=== PATIENT | female | born 1995 | race Caucasian/White ===

== ENCOUNTER 2024-09-20 18:42 | Observation (INO) | payer OTHER, MEDICAID, SELFPAY ==
[2024-09-20] VITALS (16 sets, daily range): BP systolic 91–141; BP diastolic 58–92; PULSE 80–121; RESP 16–24; TEMP 36.4–36.6; O2SAT 95–100; BMI 22.6
--- NOTE | 2024-09-20 18:57 | EKG_ITS ---
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
--- NOTE | 2024-09-20 19:16 | DI.RAD.S_ITS ---
PROCEDURE: XR CHEST 1V INDICATIONS: altered mental status TECHNIQUE: One view of the chest was acquired. COMPARISON: CT, CT ANGIO CHEST PE, 01/16/2017, 0:37. CR, XR CHEST 1VW (PORTABLE), 01/15/2017, 22:58. FINDINGS: Surgical changes and devices: None. Lungs and pleura: Faint streaky right basilar opacities. Mediastinum: Mediastinal contours appear normal. Heart size is normal. Bones and chest wall: No suspicious bony lesions. Overlying soft tissues appear unremarkable. IMPRESSION: Faint streaky right basilar opacities. While this could represent atelectasis, developing pneumonia cannot be excluded. Dictated by: Tami Thompson M.D. on 09/20/2024 at 20:12 Approved by: Tami Thompson M.D. on 09/20/2024 at 20:13
[2024-09-20] MEDS: PHENobarbital 65 MG/ML VIAL 130 MG IV (19:22)
[2024-09-20 20:05] LABS: Alanine Aminotransferase 108 IU/L (<35); Albumin 5.2 g/dL (3.5-5.0); Albumin Globulin Ratio 1.8 (1.0-2.8); Alkaline Phosphatase 73 U/L (38-126); Aspartate Aminotransferase 154 IU/L (14-36); BUN Creatinine Ratio 15.5 (6-22); Bilirubin Total 2.2 mg/dL (0.2-1.3); Blood Urea Nitrogen 9 mg/dL (7-17); Calcium 9.7 mg/dL (8.4-10.2); Carbon Dioxide 20 mmol/L (22-32); Chloride 95 mmol/L (98-107); Estimated Glomerular Filt Rate > 60 mL/min (>60); Globulin 2.9 g/dL (1.7-4.1); Glucose 98 mg/dL (70-100); HEMOLYSIS 24 (0-50); Potassium 3.7 mmol/L (3.4-5.1); Sodium 134 mmol/L (137-145); Total Protein 8.1 g/dL (6.3-8.2)
[2024-09-20 20:10] LABS: Magnesium 1.3 mg/dL (1.6-2.3)
[2024-09-20 20:16] LABS: Add Manual Diff / Slide Review NO; Basophils Absolute Auto 0 /uL (0-100); Basophils Percent Auto 1.2 % (0-2); Eosinophils Absolute Auto 0 /uL (0-450); Eosinophils Percent Auto 0.8 % (2-4); Hematocrit 33.3 % (36-46); Hemoglobin 11.4 g/dL (12.0-16.0); Lymphocytes Absolute Auto 900 /uL (1100-4500); Mean Corpuscular HGB Conc 34.1 % (30-36); Mean Corpuscular Hemoglobin 34.9 PG (26-34); Mean Corpuscular Volume 102.1 fL (80-100); Monocytes Absolute Auto 500 /uL (0-900); Monocytes Percent Auto 12.5 % (3-14); Neutrophils Absolute Auto 2600 /uL (1500-7000); Neutrophils Percent Auto 63.5 % (50-75); Platelet Count 237 X10^3/uL (150-400); Red Blood Cell Count 3.26 X10^6/uL (4.0-5.2); White Blood Cell Count 4.1 X10^3/uL (4.5-11.0)
[2024-09-20 20:18] LABS: Ammonia (NH3) < 9 umol/L (9-30)
--- NOTE | 2024-09-20 21:16 | ED_ITS ---
HPI - Seizure General Chief Complaint: Seizure Stated Complaint: ETOH witdrawl Suspected seizure. Time Seen by Provider: 09/20/24 20:10 History of Present Illness HPI Narrative: 29-year-old female without history chronic seizure disorder, has ongoing alcohol use, drinks White Claw alcoholic beverages regularly, last drink sometime yesterday, at dinner had witnessed seizure tonic-clonic shaking upper and lower extremities lasting for about 45 seconds witnessed by family member. Spontaneous resolution of the seizure activity. No trauma to head or face at the time of seizure, nor recent. Denies headache, neck pain, chest pain, abdominal pain. Some nausea without emesis. No diarrhea. No black or red stools. She has felt shaky. She has had alcohol withdrawal symptoms in the past, has been treated detox center would be in the past. She has not been admitted to the ICU for alcohol withdrawal before, has not had alcohol withdrawal seizures before. Related Data Previous Rx's Medication Instructions Recorded chlordiazepoxide HCl 10 mg capsule 10 mg PO Q8H PRN alcohol 09/21/24 withdrawal #10 caps chlordiazepoxide HCl 25 mg capsule See Rx Instructions .Route 09/21/24 .COMPLEX #18 caps Allergies Allergy/AdvReac Type Severity Reaction Status Date / Time No Known Allergies Allergy Uncoded 03/06/18 13:03 Review of Systems Review of Systems Narrative: see HPI Patient History Social History household members: family Smoking Status: Never smoker alcohol intake: current Exam Narrative Exam Narrative: GENERAL: Well-developed patient, in mild distress. Anxious appearing HEAD: Atraumatic. Normocephalic. EYES: Pupils equal round and reactive. Extraocular motions intact. No scleral icterus. No injection or drainage. ENT: Nose without bleeding, purulent drainage. Throat without erythema, tonsillar hypertrophy or exudate. Airway patent. Small contusion lower inferior lip, no obvious tongue trauma. No obvious dental trauma. NECK: Trachea midline. Non tender CARDIOVASCULAR: Regular rate and rhythm without murmurs, gallops, or rubs. RESPIRATORY: Clear to auscultation. Breath sounds equal bilaterally. No wheezes, rales, or rhonchi. GASTROINTESTINAL: Abdomen soft, non-tender, nondistended. EXTREMITIES: No edema or joint tenderness. BACK: Nontender without deformity or crepitance. No flank tenderness. NEURO: AOx3. Motor functions grossly nonfocal. Some tremulousness noted. SKIN: No rash or erythema of visible areas Initial Vital Signs Initial Vital Signs: Vital Signs Temperature 97.8 F 09/20/24 18:50 Pulse Rate 121 H 09/20/24 18:50 Respiratory Rate 16 09/20/24 18:50 Blood Pressure 138/90 09/20/24 18:50 Pulse Oximetry 96 09/20/24 18:50 Oxygen Delivery Method Room Air 09/20/24 18:50 Course Orders Ordered: Discontinued Medications Acetaminophen (Acetaminophen 325 Mg Tablet) 650 mg PO Q6H PRN PRN Reason: Fever/Mild Pain (1-3) Calcium Carbonate (Calcium Carbonate 500 Mg Tab) 1,000 mg PO Q4HR PRN PRN Reason: Dyspepsia Chlordiazepoxide HCl (Chlordiazepoxide 25 Mg Capsule) 50 mg PO TID ON LICENSE OF [facility] Last Admin: 09/21/24 08:24 Dose: 50 mg Documented By: ALYSSA Chlordiazepoxide HCl (Chlordiazepoxide 25 Mg Capsule) 25 mg PO TID ON LICENSE OF [facility] Last Admin: 09/21/24 10:20 Dose: Not Given Documented By: ALYSSA Folic Acid (Folic Acid 1 Mg Tablet) 1 mg PO DAILY ON LICENSE OF [facility] Last Admin: 09/21/24 08:24 Dose: 1 mg Documented By: ALYSSA Folic Acid (Folic Acid 1 Mg Tablet) 1 mg PO NOW ONE Stop: 09/20/24 23:00 Last Admin: 09/20/24 23:24 Dose: 1 mg Documented By: WES Haloperidol (Haloperidol 5 Mg/Ml Vial) 5 mg IV Q1HR PRN PRN Reason: Hallucinations Dextrose/Sodium Chloride (Dextrose 5%-0.45% Ns) 1,000 mls @ 100 mls/hr IV CONT ON LICENSE OF [facility] Last Admin: 09/21/24 00:53 Dose: 100 mls/hr Documented By: QUENTIN Lorazepam (Lorazepam 2 Mg/Ml Inj) 0 mg IV CIWAPRN PRN; Protocol PRN Reason: Alcohol Withdrawal Magnesium Oxide (Magnesium Oxide 400 Mg Tablet) 400 mg PO DAILY ON LICENSE OF [facility] Magnesium Oxide (Magnesium Oxide 400 Mg Tablet) 400 mg PO DAILY ON LICENSE OF [facility] Last Admin: 09/20/24 21:55 Dose: 400 mg Documented By: WES Multivitamins (Multivitamin 1 Tablet) 1 tab PO DAILY ON LICENSE OF [facility] Multivitamins (Multivitamin 1 Tablet) 1 tab PO DAILY ON LICENSE OF [facility] Last Admin: 09/21/24 08:24 Dose: 1 tab Documented By: ALYSSA Naloxone HCl (Naloxone 0.4 Mg/Ml Vial) 0.2 mg IV Q2MIN PRN PRN Reason: Opiate Reversal Ondansetron HCl (Ondansetron 4 Mg/2 Ml Inj) 4 mg IV Q8HR PRN PRN Reason: Nausea And Vomiting Ondansetron HCl (Ondansetron 4 Mg/2 Ml Inj) 4 mg IV Q6HR PRN PRN Reason: Nausea And Vomiting Phenobarbital (Phenobarbital 65 Mg/Ml Vial) 130 mg IV NOW ONE Stop: 09/20/24 19:18 Last Admin: 09/20/24 19:22 Dose: 130 mg Documented By: FELIX Thiamine HCl (Thiamine 100 Mg Tablet) 100 mg PO DAILY NICOLE Stop: 09/24/24 09:01 Last Admin: 09/21/24 08:24 Dose: 100 mg Documented By: ALYSSA Vital Signs Vital signs: Vital Signs - 8 hr 09/20/24 18:50 09/20/24 19:15 09/20/24 19:45 Temperature 97.8 F Pulse Rate 121 H 80 99 H Respiratory Rate 16 20 21 Blood Pressure 138/90 91/58 L 121/83 Pulse Oximetry 96 96 97 Oxygen Delivery Method Room Air Room Air Room Air 09/20/24 19:49 09/20/24 20:00 09/20/24 20:01 Temperature Pulse Rate 96 H 99 H Respiratory Rate 21 Blood Pressure 134/85 Pulse Oximetry 95 97 Oxygen Delivery Method 09/20/24 20:01 09/20/24 20:30 09/20/24 20:30 Temperature Pulse Rate 98 H 95 H Respiratory Rate Blood Pressure 116/75 Pulse Oximetry 97 97 Oxygen Delivery Method Room Air 09/20/24 21:00 09/20/24 21:00 09/20/24 21:30 Temperature Pulse Rate 94 H 104 H Respiratory Rate 24 24 Blood Pressure 119/78 Pulse Oximetry 98 98 Oxygen Delivery Method 09/20/24 21:45 09/20/24 21:45 09/20/24 22:00 Temperature Pulse Rate 89 111 H Respiratory Rate 19 Blood Pressure 129/92 H Pulse Oximetry 97 98 Oxygen Delivery Method 09/20/24 22:02 09/20/24 22:02 09/20/24 22:30 Temperature Pulse Rate 97 H Respiratory Rate Blood Pressure 133/92 H 133/79 Pulse Oximetry 97 Oxygen Delivery Method 09/20/24 22:30 Temperature Pulse Rate 87 Respiratory Rate 18 Blood Pressure Pulse Oximetry 98 Oxygen Delivery Method Room Air MDM - Seizure Lab Data Attestation: I reviewed the patient's lab results. Lab results narrative: White blood cell count 4100, hemoglobin 11.4, platelets adequate. Sodium 134 with glucose 98, potassium 3.7 normal, serum CO2 20. T bili 2.2, mild transaminitis, alkaline phosphatase unremarkable. Magnesium 1.3 low. Urinalysis showed some bacteria, no inflammatory cells, urine culture requested. Urine test negative. 09/21/24 08:25 09/21/24 08:25 Labs: Lab Results 09/20/24 09/20/24 09/20/24 Range/Units 19:30 19:35 22:07 WBC 4.1 L (4.5-11.0) X10^3/uL RBC 3.26 L (4.0-5.2) X10^6/uL Hgb 11.4 L (12.0-16.0) g/dL Hct 33.3 L (36-46) % MCV 102.1 H (80-100) fL MCH 34.9 H (26-34) PG MCHC 34.1 (30-36) % RDW 16.0 H (11.6-14.8) % Plt Count 237 (150-400) X10^3/uL Neut % (Auto) 63.5 (50-75) % Lymph % (Auto) 22.0 L (25-40) % [place] % (Auto) 12.5 (3-14) % Eos % (Auto) 0.8 L (2-4) % Baso % (Auto) 1.2 (0-2) % Neut # (Auto) 2600 (3323-6607) /uL Lymph # (Auto) 900 L (7078-1073) /uL [place] # (Auto) 500 (0-900) /uL Eos # (Auto) 0 (0-450) /uL Baso # (Auto) 0 (0-100) /uL Sodium 134 L (137-145) mmol/L Potassium 3.7 (3.4-5.1) mmol/L Chloride 95 L (98-107) mmol/L Carbon Dioxide 20 L (22-32) mmol/L BUN 9 (7-17) mg/dL Creatinine 0.58 (0.52-1.04) mg/dL Estimated GFR > 60 (>60) mL/min BUN/Creatinine Ratio 15.5 (6-22) Glucose 98 (70-100) mg/dL Calcium 9.7 (8.4-10.2) mg/dL Magnesium 1.3 L (1.6-2.3) mg/dL Total Bilirubin 2.2 H (0.2-1.3) mg/dL AST 154 H (14-36) IU/L ALT 108 H (<35) IU/L Alkaline Phosphatase 73 (38-126) U/L Ammonia < 9 L (9-30) umol/L Total Protein 8.1 (6.3-8.2) g/dL Albumin 5.2 H (3.5-5.0) g/dL Globulin 2.9 (1.7-4.1) g/dL Albumin/Globulin Ratio 1.8 (1.0-2.8) Folate 3.5 (2.76-20.0) ng/mL Urine RBC 0-1/hpf (0-5/HPF) Urine WBC 1-5/hpf (0-5/HPF) Ur Squamous Epith Cells 5-10 /hpf H (0-5/HPF) Urine Bacteria Moderate (10-30) H (None) Urine Mucus 1+ H (Negative) Ur Culture Indicated? Cult not indicated Vol Urine Centrifuged 10ml (spun) U Opiates 300ng/mL cut Negative (Negative) Ur Oxycodone Screen Negative (Negative) Urine Methadone Screen Negative (Negative) Ur Barbiturates Screen Negative (Negative) U Tricyclic Antidepress Negative (Negative) Ur Phencyclidine Scrn Negative (Negative) Ur Amphetamines Screen Negative (Negative) U Methamphetamines Scrn Negative (Negative) Ur MDMA Scrn (Ecstasy) Negative (Negative) U Benzodiazepines Scrn Negative (Negative) Urine Cocaine Screen Negative (Negative) U Marijuana (THC) Screen Negative (Negative) Urine pH Normal (Normal) Urine Specific [place] Normal (Normal) Ethyl Alcohol < 10 ( - 10) mg/dL Ur Creatinine Normal (Normal) Point of Care Testing Test Results Negative Urine Dip Bedside Urine Glucose Negative Bedside Urine Bilirubin - Negative Bedside Urine Ketone +++ 80 Urine Specific [place] 1.030 Bedside Urine Occult Blood +++ Bedside Urine pH 6.0 Bedside Urine Protein +++ 300 Bedside Urine Urobilinogen - Negative Bedside Urine Nitrite - Negative Bedside Urine Leukocytes - Negative Esterase Imaging Data Chest x-ray: Radiologist's Impression: [address] [address] XRay Report Signed Patient: Ana Yung MR#: [id number] : 1995 Acct:[id number] Age/Sex: 29 / F Date of Service: 09/20/24 Loc: ED Accession Number: [id number] Procedure: XR chest 1V Ordering Provider: Zachary Palomares MD PROCEDURE: XR CHEST 1V INDICATIONS: altered mental status TECHNIQUE: One view of the chest was acquired. COMPARISON: CT, CT ANGIO CHEST PE, 01/16/2017, 0:37. CR, XR CHEST 1VW (PORTABLE), 01/15/2017, 22:58. FINDINGS: Surgical changes and devices: None. Lungs and pleura: Faint streaky right basilar opacities. Mediastinum: Mediastinal contours appear normal. Heart size is normal. Bones and chest wall: No suspicious bony lesions. Overlying soft tissues appear unremarkable. IMPRESSION: Faint streaky right basilar opacities. While this could represent atelectasis, developing pneumonia cannot be excluded. Dictated by: Tami Thompson M.D. on 09/20/2024 at 20:12 Approved by: Tami Thompson M.D. on 09/20/2024 at 20:13 ECG Data Attestation: I personally reviewed and interpreted this ECG as follows: Interpretation: Sinus tachycardia with rate 102, no obvious ST segment elevation or depression changes. Flat slightly inverted T-waves lead 3 but upright in leads 2 and F. AL 124, QRS 74, QTC 453. [facility] Narrative Medical decision making narrative: 29-year-old female with regular alcohol use was not initially forthcoming with alcohol use history, seems to exclusively drank white clot alcoholic beverages, rate of use one-half case of White Claw alcoholic beverage daily, last drink yesterday, had about 45 seconds tonic-clonic shaking activity witnessed by stepmother who is a nurse, resolved prior to arrival, has some tremulousness, suspected alcohol withdrawal seizure. No obvious craniofacial trauma, besides small lower lip contusion. CIWA alcohol score initially elevated, IV phenobarbital given, improvement of symptoms. Labs pending. We discussed CT head imaging, no trauma, nonfocal neurological exam, likely cause of seizure from alcohol withdrawal. Hold CT scanning for now. Patient and family seemed agreeable to this plan. Low magnesium level, oral magnesium given. Urine showed some bacteria, little inflammatory cells, no fever, no frequency of urination. We will request a urine culture. Hold antibiotics for now. CIWA score decreased now 1. However patient had withdrawal seizure and alcohol withdrawal, we discussed admission, patient/family are amenable to admission. Will discuss case with hospitalist [id number], case discussed with hospitalist Dr. Krishna, accepts patient for admission. Patient/family interactions: Patient was initially elusive regarding history of her alcohol use, did not initially answer questions about how much she drank, in order to determine amount of alcohol intake, and timing of last drank. With successive questioning patient became upset, step-mother became upset, both stated that I need to to slow down, and that they thought I appeared rushed. I provided an apology for this perceived affront of feeling rushed, and did make a conscious effort to speak and act slower and more deliberate. Patient was intermittently hostile with subsequent history, stating for example ?you already asked me that? when attempting to clarify history, but generally cooperative with examination. Patient and stepmother repeatedly reminded me of their disapproval of my initial rushed behavior, repeatedly threatening that they intended to file complaint(s), despite immediate my early apology. Advised admission due to first alcohol withdrawal seizure. They were not averse to this plan when expressed, when I returned to let them know the hospitalist agreed with admission. Patient and stepmother in the room were both persistently hostile during clinical interactions, dismissive in fact, not wanting to talk to me any further, however they were ultimately agreeable to admission for alcohol withdrawal seizure. Discharge Plan Departure Patient Disposition: Admitted As Inpatient Clinical Impression: Alcohol withdrawal, Alcohol withdrawal seizure, Hypomagnesemia, Contusion of lip Admit Date/Time: 09/20/24 23:30 Admit Provider: Justin Krishna
[2024-09-20] MEDS: MAGNESIUM OXIDE 400 MG TABLET PO (21:55)
[2024-09-20 22:17] LABS: Ur Creatinine Normal (Normal); Ur Specific Gravity Normal (Normal); Urine Amphetamines Negative (Negative); Urine Barbiturates Negative (Negative); Urine Benzodiazepines Negative (Negative); Urine Cocaine Negative (Negative); Urine MDMA Negative (Negative); Urine Methadone Negative (Negative); Urine Methamphetamines Negative (Negative); Urine Opiates Negative (Negative); Urine Oxycodone Negative (Negative); Urine Phencyclidine Negative (Negative); Urine THC Negative (Negative); Urine Tricyclic Antidepressant Negative (Negative); Urine pH Normal (Normal)
[2024-09-20 22:27] LABS: RBC Urine 0-1/HPF (0-5/HPF); Urine Volume 10mL (spun)
[2024-09-20 22:28] LABS: Bacteria Urine Moderate (10-30); Mucus Urine 1+ (Negative); Squamous Epithelial Cell Urine 5-10 /HPF (0-5/HPF); WBC Urine 1-5/HPF (0-5/HPF)
[2024-09-20 22:29] LABS: Culture Indicated Urine Cult Not Indicated
[2024-09-20 22:51] LABS: Ethanol (ETOH) < 10 mg/dL
[2024-09-20] MEDS: FOLIC ACID 1 MG TABLET PO (23:24)
[2024-09-21] VITALS: BP 127/88; PULSE 86; RESP 18; O2SAT 97
[2024-09-21 00:35] VITALS: BMI 22.6
[2024-09-21 00:37] LABS: Folate 3.5 ng/mL (2.76-20.0)
--- NOTE | 2024-09-21 00:50 | PC.NURSE ---
Pt arrived to 223 via wheelchair, AOx4. VS taken, placed on telemetry. Seizures pads on siderails. CIWA-5. Pt and step mother states this is the first witnessed seizure. No medical history, no home medicatoins. Pt did state I have been staying with my step mom since last Sunday and had 8 white claws, but previously I was drinking 5-8 every other day for 6-7 months and had a 2 day detox about 2 months ago. Last drink was Sunday night per pt. Also told this nurse that she has had about 20 lb weight loss within the last 3 months due to stress at home. Instructed pt to use call light for any needs. Bed alarm activated. Will continue to monitor.
[2024-09-21] MEDS: DEXTROSE 5%-0.45% NS 1,000 ML 100 ML IV (00:53)
[2024-09-21 04:00] VITALS: BP 129/87; PULSE 74; RESP 18; TEMP 36.2; O2SAT 99
--- NOTE | 2024-09-21 06:25 | PM.HP.1 ---
History of Present Illness History of Present Illness Chief complaint: ETOH witdrawl Suspected seizure. Narrative: 29-year-old female with past medical history of alcohol abuse and seizure disorder presents with alcohol withdrawal and seizure. Per the patient's report, the patient drinks heavily with hard liquor a few times a week. The patient last drink was yesterday. At dinner time today, the patient had a witnessed tonic clinic seizure lasting for about 45 seconds. This was witnessed by her family member. The patient denies any seizure related to alcohol withdrawal in the past. The patient has had no head injury and denies any recent fever, headache, chills, nausea, vomiting, diarrhea, chest pain or shortness of breath . In our emergency room, the patient was hemodynamically stable and had no recurrent seizure. Alcohol level is low. Lab shows WBC of 4, sodium 134, bicarb 20 total bili 2.2 magnesium 1.3 AST 154 ALT 108 ammonia level less than 9. The patient did have contusion on her lip but no other injury noted per our ER physician. Patient was given phenobarbital as well as Ativan and IV fluid. Our ER physician admit wants to admit the patient to ICU for alcohol withdrawal related seizure . [facility] Social History household members: family Smoking Status: Never smoker alcohol intake: current Meds Home Medications and Allergies Home Medications Medication Instructions Recorded Confirmed Type No Known Home Medications 09/21/24 09/21/24 History Allergies Allergy/AdvReac Type Severity Reaction Status Date / Time No Known Allergies Allergy Uncoded 03/06/18 13:03 Review of Systems Review of Systems ROS: Yes All systems reviewed with the patient and are negative except as otherwise documented Exam Vital Signs (past 8 hours): - 09/20/24 22:30 09/20/24 22:30 09/20/24 22:51 Temperature 97.5 F L Pulse Rate 87 92 H Respiratory Rate 18 18 Blood Pressure 133/79 141/91 H Pulse Oximetry 98 100 Oxygen Delivery Method Room Air Oxygen Flow Rate 0 09/20/24 23:00 09/20/24 23:00 09/20/24 23:30 Temperature Pulse Rate 85 Respiratory Rate 19 Blood Pressure 131/87 135/83 Pulse Oximetry 98 Oxygen Delivery Method Oxygen Flow Rate 09/20/24 23:30 09/21/24 00:00 09/21/24 00:00 Temperature Pulse Rate 91 H 86 Respiratory Rate 17 18 Blood Pressure 127/88 Pulse Oximetry 97 97 Oxygen Delivery Method Oxygen Flow Rate 09/21/24 00:50 09/21/24 04:00 Temperature 97.1 F L Pulse Rate 74 Respiratory Rate 18 Blood Pressure 129/87 Pulse Oximetry 99 Oxygen Delivery Method Room Air Oxygen Flow Rate 0 Oxygen Delivery Method Room Air Oxygen Flow Rate 0 Narrative Exam Narrative: GENERAL: The patient is not in any acute distressed. Awake and alert. HEENT: Nonicteric sclerae, PERRLA, EOMI. Oropharynx clear. Moist mucous membranes. Conjunctivae appear well perfused. HEART: Regular rate and rhythm without murmurs. No lower extremities edema. LUNGS: Clear to auscultation bilaterally. No wheezing, crackles or rhonchi ABDOMEN: Soft, positive bowel sounds, nontender. SKIN: No rash, no excessive bruising, petechiae, or purpura. NEUROLOGIC: AxO x 3. Cranial nerves II-XII intact without motor/sensory deficit. Objective Labs 09/20/24 19:35 09/20/24 19:35 Labs: Laboratory Results - last 24 hr 09/20/24 09/20/24 09/20/24 19:30 19:35 22:07 WBC 4.1 L RBC 3.26 L Hgb 11.4 L Hct 33.3 L MCV 102.1 H MCH 34.9 H MCHC 34.1 RDW 16.0 H Plt Count 237 Neut % (Auto) 63.5 Lymph % (Auto) 22.0 L [place] % (Auto) 12.5 Eos % (Auto) 0.8 L Baso % (Auto) 1.2 Neut # (Auto) 2600 Lymph # (Auto) 900 L [place] # (Auto) 500 Eos # (Auto) 0 Baso # (Auto) 0 Sodium 134 L Potassium 3.7 Chloride 95 L Carbon Dioxide 20 L BUN 9 Creatinine 0.58 Estimated GFR > 60 BUN/Creatinine Ratio 15.5 Glucose 98 Calcium 9.7 Magnesium 1.3 L Total Bilirubin 2.2 H AST 154 H ALT 108 H Alkaline Phosphatase 73 Ammonia < 9 L Total Protein 8.1 Albumin 5.2 H Globulin 2.9 Albumin/Globulin Ratio 1.8 Folate 3.5 Urine RBC 0-1/hpf Urine WBC 1-5/hpf Ur Squamous Epith Cells 5-10 /hpf H Urine Bacteria Moderate (10-30) H Urine Mucus 1+ H Ur Culture Indicated? Cult not indicated Vol Urine Centrifuged 10ml (spun) U Opiates 300ng/mL cut Negative Ur Oxycodone Screen Negative Urine Methadone Screen Negative Ur Barbiturates Screen Negative U Tricyclic Antidepress Negative Ur Phencyclidine Scrn Negative Ur Amphetamines Screen Negative U Methamphetamines Scrn Negative Ur MDMA Scrn (Ecstasy) Negative U Benzodiazepines Scrn Negative Urine Cocaine Screen Negative U Marijuana (THC) Screen Negative Urine pH Normal Urine Specific [place] Normal Ethyl Alcohol < 10 Ur Creatinine Normal Assessment & Plan Assessment & Plan narrative: Alcohol withdrawal related seizure. Admit the patient to ICU. Continue aggressive CIWA protocol.? Encourage? oral fluid intake.? Monitor for any seizure activity . Transaminitis with mild elevate bilirubin. Likely related to alcohol abuse. Monitor for now . Dehydration. Encourage patient to take fluid orally . DVT prophylaxis SCDs . Code status full code.? Disposition likely home in 2 days.? Time-Based Coding :: [TOTAL MINUTES] spent with patient and on the chart (including review of chart, obtaining history, exam, reviewing outside data, placing orders, documenting exam and treatment plan, and counseling patient) on [DATE].
[2024-09-21 08:00] VITALS: BP 146/105; PULSE 90; RESP 18; TEMP 36.6; O2SAT 100
--- NOTE | 2024-09-21 08:12 | DI.CT.S_ITS ---
PROCEDURE: CT HEAD/BRAIN WO CON INDICATIONS: seizure TECHNIQUE: Noncontrast 4.5 mm thick angled axial sections acquired from the foramen magnum to the vertex, with coronal and sagittal reformats. For radiation dose reduction, the following was used: automated exposure control, adjustment of mA and/or kV according to patient size. COMPARISON: None. FINDINGS: Image quality: Diagnostic. CSF spaces: Basal cisterns are patent. No extra-axial fluid collections. Ventricles are normal in size and shape. Brain: No midline shift. No intracranial masses or hemorrhage. Andres-white matter interface is normal. Skull and face: Calvarium and visualized facial bones are intact, without suspicious lesions. Sinuses: Visualized sinuses and mastoids are clear. IMPRESSION: No acute intracranial pathology. Dictated by: Mekhi Weathers M.D. on 09/21/2024 at 19:14 Approved by: Mekih Weathers M.D. on 09/21/2024 at 19:14
[2024-09-21] MEDS: FOLIC ACID 1 MG TABLET PO (08:24)
[2024-09-21] MEDS: THIAMINE 100 MG TABLET PO (08:24)
[2024-09-21] MEDS: chlordiazePOXIDE 25 MG CAPSULE 50 MG PO (08:24)
[2024-09-21] MEDS: MULTIVITAMIN 1 TABLET 1 TAB PO (08:24)
[2024-09-21 08:44] LABS: Add Manual Diff / Slide Review NO; Basophils Absolute Auto 100 /uL (0-100); Basophils Percent Auto 1.2 % (0-2); Eosinophils Absolute Auto 100 /uL (0-450); Hematocrit 32.9 % (36-46); Hemoglobin 11.4 g/dL (12.0-16.0); Lymphocytes Absolute Auto 1700 /uL (1100-4500); Lymphocytes Percent Auto 27.7 % (25-40); Mean Corpuscular HGB Conc 34.6 % (30-36); Mean Corpuscular Hemoglobin 35.4 PG (26-34); Mean Corpuscular Volume 102.2 fL (80-100); Monocytes Absolute Auto 700 /uL (0-900); Monocytes Percent Auto 11.6 % (3-14); Neutrophils Absolute Auto 3500 /uL (1500-7000); Neutrophils Percent Auto 58.5 % (50-75); Platelet Count 226 X10^3/uL (150-400); Red Blood Cell Count 3.21 X10^6/uL (4.0-5.2); Red Cell Distribution Width 15.8 % (11.6-14.8)
[2024-09-21 08:51] LABS: Alanine Aminotransferase 93 IU/L (<35); Albumin 4.7 g/dL (3.5-5.0); Albumin Globulin Ratio 1.7 (1.0-2.8); Alkaline Phosphatase 58 U/L (38-126); Aspartate Aminotransferase 99 IU/L (14-36); BUN Creatinine Ratio 18.8 (6-22); Bilirubin Total 1.5 mg/dL (0.2-1.3); Blood Urea Nitrogen 9 mg/dL (7-17); Calcium 9.2 mg/dL (8.4-10.2); Carbon Dioxide 24 mmol/L (22-32); Chloride 95 mmol/L (98-107); Estimated Glomerular Filt Rate > 60 mL/min (>60); Globulin 2.8 g/dL (1.7-4.1); Glucose 107 mg/dL (70-100); HEMOLYSIS < 15 (0-50); Magnesium 1.7 mg/dL (1.6-2.3); Potassium 3.9 mmol/L (3.4-5.1); Sodium 132 mmol/L (137-145); Total Protein 7.5 g/dL (6.3-8.2)
[2024-09-21 09:10] LABS: INR 0.9 (0.9-1.3); Prothrombin Time 10.8 SECONDS (9.4-12.5)
[2024-09-21 09:13] LABS: PTT Partial Thromboplastin Tim 34 SECONDS (25.1-36.5)
--- NOTE | 2024-09-21 10:26 | PM.DS.1 ---
History of Present Illness History of Present Illness Date Patient Seen: 09/21/24 Time Patient Seen: 10:26 Chief complaint: ETOH witdrawl Suspected seizure. Narrative: Per admitting provider, 29-year-old female with past medical history of alcohol abuse and seizure disorder presents with alcohol withdrawal and seizure. Per the patient's report, the patient drinks heavily with hard liquor a few times a week. The patient last drink was yesterday. At dinner time today, the patient had a witnessed [facility]onic clinic seizure lasting for about 45 seconds. This was witnessed by her family member. The patient denies any seizure related to alcohol withdrawal in the past. The patient has had no head injury and denies any recent fever, headache, chills, nausea, vomiting, diarrhea, chest pain or shortness of breath . In our emergency room, the patient was hemodynamically stable and had no recurrent seizure. Alcohol level is low. Lab shows WBC of 4, sodium 134, bicarb 20 total bili 2.2 magnesium 1.3 AST 154 ALT 108 ammonia level less than 9. The patient did have contusion on her lip but no other injury noted per our ER physician. Patient was given phenobarbital as well as Ativan and IV fluid. Our ER physician admit wants to admit the patient to ICU for alcohol withdrawal related seizure . Discharge Providers Provider Date of admission: 09/20/24 23:30 Discharge Date: 09/21/24 Primary care physician: Collins Loving MD Consults: 09/20/24 22:57 Consult to Dietitian, Adult Routine Comment: Reason For Exam: alcohol abuse 09/21/24 00:41 Consult to Dietitian, Adult Routine Comment: Reason For Exam: 20 lbs weight loss in last 3 months Discharge provider: Scar Stevens DO Summary Hospital Course Discharge Diagnosis: 1. Alcoholic hepatitis 2. Alcohol withdrawal seizure 3. Hyponatremia, mild, asymptomatic 4. Contaminated urinalysis Hospital Course: This is a 29 year old female with PMH of EtOH use, prior withdrawal who was admitted after a seizure. Head CT was performed which showed no acute abnormalities based on my review (has not been finalized though no obvious mass or bleeding is noted). She was given a dose of phenobarb in the ER, CIWA remained low at 1 for >12 hours after this. She had no recurrence of seizures. She did receive a dose of librium, had still CIWA of 1. Patient wanted to discharge home after admission. Given her improvement, low CIWA scores, and plan for close, trained observation at home she was discharged home with librium taper. She also has outpatient doses of lorazepam prescribed which could also be used for symptom management but this was not specifically prescribed. Discussed close monitoring at home with family, and return precautions including confusion, hallucinations or seizure, also sustained tachycardia and palpitations. Librium taper was sent to a local pharmacy and she was discharged home after social work discussion as well for outpatient resources. Patient had mild alcoholic hepatitis based on admission labs, improved on repeat. Admission labs and normal INR result in a low DF, no steroids are indicated. Time Spent with Patient Time spent: Greater than 30 minutes Exam Vital Signs (past 8 hours): - 09/21/24 04:00 09/21/24 08:00 Temperature 97.1 F L 97.8 F Pulse Rate 74 90 Respiratory Rate 18 18 Blood Pressure 129/87 146/105 H Pulse Oximetry 99 100 Oxygen Flow Rate 0 0 Oxygen Delivery Method Room Air Oxygen Flow Rate 0 Narrative Exam Narrative: GENERAL: The patient is not in any acute distressed. Awake and alert. HEENT: Nonicteric sclerae, PERRLA, EOMI. Oropharynx clear. Moist mucous membranes. HEART: Regular rate and rhythm without murmurs. No lower extremities edema. LUNGS: Clear to auscultation bilaterally. No wheezing, crackles or rhonchi ABDOMEN: Soft, positive bowel sounds, nontender. SKIN: No rash, no excessive bruising, petechiae, or purpura. NEUROLOGIC: AxO x 3. Cranial nerves II-XII intact without motor/sensory deficit. Mild tremulousness. Objective Labs 09/21/24 08:25 09/21/24 08:25 Labs: Laboratory Results - last 24 hr 09/20/24 09/20/24 09/20/24 19:30 19:35 22:07 WBC 4.1 L RBC 3.26 L Hgb 11.4 L Hct 33.3 L MCV 102.1 H MCH 34.9 H MCHC 34.1 RDW 16.0 H Plt Count 237 Neut % (Auto) 63.5 Lymph % (Auto) 22.0 L Williamson % (Auto) 12.5 Eos % (Auto) 0.8 L Baso % (Auto) 1.2 Neut # (Auto) 2600 Lymph # (Auto) 900 L Williamson # (Auto) 500 Eos # (Auto) 0 Baso # (Auto) 0 PT INR APTT Sodium 134 L Potassium 3.7 Chloride 95 L Carbon Dioxide 20 L BUN 9 Creatinine 0.58 Estimated GFR > 60 BUN/Creatinine Ratio 15.5 Glucose 98 Calcium 9.7 Magnesium 1.3 L Total Bilirubin 2.2 H AST 154 H ALT 108 H Alkaline Phosphatase 73 Ammonia < 9 L Total Protein 8.1 Albumin 5.2 H Globulin 2.9 Albumin/Globulin Ratio 1.8 Folate 3.5 Urine RBC 0-1/hpf Urine WBC 1-5/hpf Ur Squamous Epith Cells 5-10 /hpf H Urine Bacteria Moderate (10-30) H Urine Mucus 1+ H Ur Culture Indicated? Cult not indicated Vol Urine Centrifuged 10ml (spun) U Opiates 300ng/mL cut Negative Ur Oxycodone Screen Negative Urine Methadone Screen Negative Ur Barbiturates Screen Negative U Tricyclic Antidepress Negative Ur Phencyclidine Scrn Negative Ur Amphetamines Screen Negative U Methamphetamines Scrn Negative Ur MDMA Scrn (Ecstasy) Negative U Benzodiazepines Scrn Negative Urine Cocaine Screen Negative U Marijuana (THC) Screen Negative Urine pH Normal Urine Specific [place] Normal Ethyl Alcohol < 10 Ur Creatinine Normal 09/21/24 09/21/24 08:25 08:55 WBC 6.0 RBC 3.21 L Hgb 11.4 L Hct 32.9 L MCV 102.2 H MCH 35.4 H MCHC 34.6 RDW 15.8 H Plt Count 226 Neut % (Auto) 58.5 Lymph % (Auto) 27.7 Williamson % (Auto) 11.6 Eos % (Auto) 1.0 L Baso % (Auto) 1.2 Neut # (Auto) 3500 Lymph # (Auto) 1700 Williamson # (Auto) 700 Eos # (Auto) 100 Baso # (Auto) 100 PT 10.8 INR 0.9 APTT 34 Sodium 132 L Potassium 3.9 Chloride 95 L Carbon Dioxide 24 BUN 9 Creatinine 0.48 L Estimated GFR > 60 BUN/Creatinine Ratio 18.8 Glucose 107 H Calcium 9.2 Magnesium 1.7 Total Bilirubin 1.5 H AST 99 H ALT 93 H Alkaline Phosphatase 58 Ammonia Total Protein 7.5 Albumin 4.7 Globulin 2.8 Albumin/Globulin Ratio 1.7 Folate Urine RBC Urine WBC Ur Squamous Epith Cells Urine Bacteria Urine Mucus Ur Culture Indicated? Vol Urine Centrifuged U Opiates 300ng/mL cut Ur Oxycodone Screen Urine Methadone Screen Ur Barbiturates Screen U Tricyclic Antidepress Ur Phencyclidine Scrn Ur Amphetamines Screen U Methamphetamines Scrn Ur MDMA Scrn (Ecstasy) U Benzodiazepines Scrn Urine Cocaine Screen U Marijuana (THC) Screen Urine pH Urine Specific [place] Ethyl Alcohol Ur Creatinine PFSH Social History household members: family Smoking Status: Never smoker alcohol intake: current Discharge Plan Discharge Plan Patient Disposition: Home Provider Discharge Comment: You were admitted to the hospital with alcohol withdrawal seizure. You have been stable on minimal medications, okay for discharge home with prescribed librium taper. Watch for signs of worsening withdrawal including hallucinations, seizures, or confusion. If you develop more shaking or palpitations, you can also take some of the ativan (lorazepam) you have been prescribed previously if you still have it. Discharge orders & Medications Prescriptions: New chlordiazepoxide HCl 25 mg capsule See Rx Instructions .ROUTE .COMPLEX Qty: 18 0RF Rx Instructions: 50 mg orally TID for 2 days, followed by 25 mg TID for 2 days. chlordiazepoxide HCl 10 mg capsule 10 mg PO Q8H PRN (Reason: alcohol withdrawal) Qty: 10 0RF Rx Instructions: Take 10 mg BID for up to 5 days for alcohol withdrawal symptoms, after completion of higher 25 mg tablets Follow up/Referrals: Collins Loving MD [Primary Care Provider] - Diet/Activity/Treatments Diet: Diet as Tolerated Activity: As tolerated, no restrictions Visit Report/Discharge Packet Instructions: Alcohol Withdrawal, Chlordiazepoxide Stand Alone Forms: Patient Portal/API, Stroke Signs & Symptoms Discharge Data Primary Care Provider: Collins Loving
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
== END 2024-09-21 12:10 | disposition home or self-care (01) ==
LOC: ED 23:04 → AC 09-21 00:04
PROVIDERS: Internal Medicine; Admitting Provider Internal Medicine; Emergency Provider Emergency Medicine; Family Provider Family Medicine; PCP Family Medicine; Referring Provider Emergency Medicine; Visit Provider Internal Medicine
DX: R56.9 Unspecified convulsions (principal); K70.10 Alcoholic hepatitis without ascites; F10.239 Alcohol dependence with withdrawal, unspecified; Y90.0 Blood alcohol level of less than 20 mg/100 ml; E87.1 Hypo-osmolality and hyponatremia
CPT/HCPCS: 36415; 70450; 71045; 80053; 80305; 80320; 81003; 81015; 81025; 82140; 82746; 83735; 85025; 85610; 85730; 87086; 93005; 96374; 99284; G0378; J2560